=== PATIENT | male | born 1950 | race Asian ===

== ENCOUNTER 2017-07-11 18:57 | Inpatient (IN) | END 2017-07-13 15:57 | disposition home or self-care (01) | DRG 149 ==

== ENCOUNTER 2017-10-05 18:28 | Emergency (ER) | END 2017-10-05 21:37 | disposition home or self-care (01) ==

== ENCOUNTER 2017-11-05 13:34 | Day surgery (SDC) | END 2017-11-05 15:47 | disposition home or self-care (01) ==

== ENCOUNTER 2018-01-01 08:27 | Day surgery (SDC) | END 2018-01-01 15:44 | disposition home or self-care (01) ==

== ENCOUNTER 2018-04-10 11:13 | Day surgery (SDC) | payer OTHER ==
[~2018-04-10] VITALS: Ht 175.3 cm; Wt 78.4 kg
[~2018-04-10 11:13] MED LIST: AMLO-147 PO; ASPI325T30 PO; HYDR-3672 PO; LOSA50TA14 PO
[2018-04-10] MEDS ORDERED: CALC667C PO (11:54)
[2018-04-10 12:11] VITALS: Ht 175.3 cm; Wt 78.4 kg
[2018-04-10 12:14] VITALS: BP 176/79; PULSE 85
[2018-04-10] MEDS ORDERED: LIDOCAINE 1% (MDV) 20 ML INJ ONE (12:51)
[2018-04-10] MEDS ORDERED: HEPARIN 1000 UNITS/ML 10 ML INJ ONE (12:51)
[2018-04-10] MEDS ORDERED: IODIXANOL LOCM 50 ML BTL ONE (13:17)
[2018-04-10 13:50] VITALS: BP 154/81; PULSE 74; RESP 17
--- NOTE | 2018-04-10 14:12 | OPR ---
DATE OF OPERATION: 04/10/2018 OPERATING SURGEON: Frantz Gordon MD INDICATIONS FOR PROCEDURE: End-stage renal disease, nonfunctioning right chest Perm-A-Cath, which silva s been in place for 2 years. PREOPERATIVE DIAGNOSIS: POSTOPERATIVE DIAGNOSIS: PROCEDURES PERFORMED: 1. Right chest Perm-A-Cath exchange. 2. Superior vena cavoplasty. DESCRIPTION OF OPERATIVE PROCEDURE: The patient was prepped and draped in sterile fashion after oper ative consent was obtained and local anesthetic was infiltrated into the skin. Time-out was performe d. The cuff of the previously placed Perm-A-Cath was freed from the surrounding tissue with blunt di ssection. Once the catheter was loose, an Amplatz wire was placed through the previously placed Perm -A-Cath and the Perm-A-Cath was removed approximately 6 cm. 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 The catheter was removed. A 12 x 4 cm balloon was placed over the wire and was inflated in the superior vena cava as well as in the pe ripheral superior vena cava. A mild waist was seen. Next, the 24 cm Perm-A-Cath was again placed ov er the wire after the balloon was removed. Once good positioning was seen, the wire was removed and both ports aspirated and flushed well. The Perm-A-Cath was tacked to the skin with a 3-0 nylon sutur e. A Biopatch was placed around the skin exit site and a pressure dressing was placed. Procedure wa s terminated. Dictated By: FRANTZ GARCÍA/LEIDY Conf#: [id number] DID#: [id number]
== END 2018-04-10 14:23 | disposition home or self-care (01) ==
LOC: SDS 11:13
PROVIDERS: ATTEND Surgery
DX: T82.49XA Other complication of vascular dialysis catheter, initial encounter (principal); Y84.1 Kidney dialysis as the cause of abnormal reaction of the patient, or of later complication, without mention of misadventure at the time of the procedure; I12.0 Hypertensive chronic kidney disease with stage 5 chronic kidney disease or end stage renal disease; N18.6 End stage renal disease
CPT/HCPCS: 37248; 84132; J1644; Q9967; Z7610

== ENCOUNTER 2018-06-03 06:06 | Day surgery (SDC) | payer OTHER ==
[2018-05-26 13:05] VITALS: BMI 26.8
[~2018-06-03] VITALS: Ht 172.7 cm; Wt 81.2 kg
[2018-06-03] VITALS (16 sets, daily range): BP systolic 152–179; BP diastolic 69–92; PULSE 70–82; RESP 12–24; Ht 172.7 cm; Wt 81.2 kg
[~2018-06-03 06:06] MED LIST changes: +CALC667C PO; -LOSA50TA14 PO
[2018-06-03] MEDS ORDERED: BUPIVACAINE 0.25% (MPF) 30 ML INJ ONE (06:32)
[2018-06-03] MEDS ORDERED: THROMBIN (BOVINE) 5,000 UNIT VIAL TP ONE (06:32)
[2018-06-03] MEDS ORDERED: GELATIN SIZE 100 SPONGE ONE (06:32)
[2018-06-03] MEDS ORDERED: LIDOCAINE 1% (MPF) 30 ML INJ ONE (06:33)
[2018-06-03] MEDS ORDERED: HEPARIN 1000 UNITS/ML 10 ML INJ ONE ×3 (06:33→08:36)
[2018-06-03] MEDS ORDERED: SEVOFLURANE 15 MIN ONE (07:00)
--- NOTE | 2018-06-03 07:15 | PREAC ---
Date/Time of Note Date/Time of Note DATE: 06/03/18 TIME: 07:14 Anesthesia Eval and Record Evaluation Time Pre-Procedure Interview DATE: 06/03/18 TIME: 07:14 Age 67 Sex male NPO: 8 hrs Preoperative diagnosis ESRD Planned procedure Left arm AV fistula transposition Past Medical History Past Medical History: Includes Cardio: HTN Renal: ESRD on dialysis, HD last: (05/31) Surgery & Anesthesia Issues No known issue Meds Anticoagulation: No Beta Rogelio within 24 hr: No Reason Beta Rogelio not given: Pt. not on B-Rogelio Reported Medications Calcium Acetate* (Calcium Acetate*) 667 Mg Capsule, 1334 MG PO WITH MEALS, #60 CAP 04/10/18 Hydralazine Hcl* (Hydralazine Hcl*) 50 Mg Tab, 50 MG PO TID PRN for ELEVATED BLOOD PRESSURE, #60 TAB 11/05/17 Aspirin* (Aspirin*) 325 Mg Tablet, 325 MG PO DAILY, TAB 07/11/17 Amlodipine Besylate* (Amlodipine Besylate*) 10 Mg Tablet, 10 MG PO DAILY, #30 TAB 07/11/17 Meds reviewed: Yes Allergies Coded Allergies: No Known Allergies (Verified Allergy, Unknown, 06/03/18) Allergies Reviewed: Yes Labs/Studies Labs Reviewed: Reviewed by anesthesiologist Result Diagram: 06/03/18 0638 Laboratory Tests 06/03/18 06:38 test: N/A Pre-procedure Exam Last vitals Vital Signs Date Temp Pulse Resp B/P (MAP) Pulse Ox O2 O2 Flow FiO2 Time Delivery Rate 06/03/18 98.6 79 18 175/92 99 Room Air 06:56 (119) Airway: Adequate mouth opening Mallampati: Mallampati I Teeth: Abnormal (A few lower teeth left) Lung: Normal Heart: Normal ASA Physical Status ASA physical status: 3 Emergency: None Planned Anesthetic General/MAC: LMA Planned Pain Management Parenteral pain med Pre-operative Attestations Prior to commencing anesthesia and surgery, the patient was re-evaluated, there was verification of: *The patient's identity *The results of appropriate recent lab work and preoperative vital signs *The above evaluation not changing prior to induction *Anesthetic plan, risk benefits, alternative and complications discussed with patient/family; questions answered; patient/family understands, accepts and wishes to proceed. FINA GUO MD Jun 03, 2018 07:15
[2018-06-03] MEDS ORDERED: LOSA50TA14 ORAL (07:30)
[2018-06-03] MEDS ORDERED: HYDR-3671 ORAL (07:30)
[2018-06-03] MEDS ORDERED: PROPOFOL 20 ML ONE (07:34)
[2018-06-03] MEDS ORDERED: LIDOCAINE 2% (SDV) 5 ML INJ ONE (07:34)
--- NOTE | 2018-06-03 07:35 | HPN ---
Date/Time of Note Date/Time of Note DATE: 06/03/18 TIME: 07:35 Interval H&P Admission Note Pt. seen H&P reviewed: No system changes ELIZABETH MENDOZA MD Jun 03, 2018 07:35
[2018-06-03] MEDS ORDERED: CEFAZOLIN 1 GM INJ ONE (07:36)
[2018-06-03] MEDS ORDERED: OXYCODONE/ACETAMINOPHEN (5/325) TAB PO PRN ×2 (08:30)
[2018-06-03] MEDS ORDERED: MEPERIDINE 25 MG INJ IV PRN (08:30)
[2018-06-03] MEDS ORDERED: METOCLOPRAMIDE 10 MG INJ IV PRN (08:30)
[2018-06-03] MEDS ORDERED: EPHEDrine SULFATE 50 MG/5 ML SYG IV PRN (08:30)
[2018-06-03] MEDS ORDERED: HYDROmorphONE 1 MG/5 ML IV SYRINGE IV PRN ×2 (08:30)
[2018-06-03] MEDS ORDERED: ONDANSETRON 4 MG INJ IV PRN (08:30)
[2018-06-03] MEDS ORDERED: hydrALAzine 20 MG INJ IV PRN (08:30)
[2018-06-03] MEDS ORDERED: DIPHENHYDRAMINE 50 MG INJ IV PRN (08:30)
[2018-06-03] MEDS ORDERED: FENTAnyl 50 MCG/ML VIAL IV PRN ×3 (08:30)
[2018-06-03] MEDS ORDERED: MIDAZOLAM 1 MG/ML 2 ML INJ IV PRN (08:30)
[2018-06-03] MEDS ORDERED: LABETALOL HCL 20MG INJ IV PRN (08:30)
[2018-06-03] MEDS ORDERED: EPHEDrine 25 MG/5 ML SYG ONE (09:30)
--- NOTE | 2018-06-03 09:35 | SIPON ---
Date/Time of Note Date/Time of Note DATE: 06/03/18 TIME: 09:34 Operative Report Preoperative Diagnosis ESRD Postoperative Diagnosis same Operation/Procedure Performed Left basilic AVF transposition. Surgeon Rip Mendoza MD see signature line optometry assistant none Anesthesia: general Estimated blood loss: minimal Transfusion Required none Specimen none Grafts/Implants none Complications none RIP MENDOZA MD Jun 03, 2018 09:35
[2018-06-03] MEDS: HYDROmorphONE 1 MG/5 ML IV SYRINGE IV PRN ×2 (10:06→10:20)
--- NOTE | 2018-06-03 10:38 | PAC ---
Date/Time of Note Date/Time of Note DATE: 06/03/18 TIME: 10:37 Post-Anesthesia Notes Post-Anesthesia Note Last documented vital signs Vital Signs Date Temp Pulse Resp B/P (MAP) Pulse Ox O2 O2 Flow FiO2 Time Delivery Rate 06/03/18 72 13 172/81 89 Room Air 10:32 (111) 06/03/18 98.1 09:49 Activity: WNL Respiratory function: WNL Cardiovascular function: WNL Mental status: Baseline Pain reasonably controlled: Yes Hydration appropriate: Yes Nausea/Vomiting absent: Yes Comments BT: 98.4 FINA GUO MD Jun 03, 2018 10:38
--- NOTE | 2018-06-03 17:35 | RADRPT ---
Vent Rate: 80 bpm RR Interval: 0 msec KS Interval: 182 msec QRS Duration: 118 msec QT Interval: 362 msec QTC Interval: 417 msec P-R-T Fieldale: 66 - 73 - -4 degrees Normal sinus rhythm Left ventricular hypertrophy with QRS widening and repolarization abnormality Abnormal ECG Electronically Signed By: Maicol Koch
--- NOTE | 2018-06-03 19:02 | OPR ---
DATE OF OPERATION: 06/03/2018 PREOPERATIVE DIAGNOSIS: End-stage renal disease. POSTOPERATIVE DIAGNOSIS: End-stage renal disease. OPERATION PERFORMED: Left brachiobasilic AV fistula transposition. SURGEON: Elizabeth Sweeney MD TELEVISION MECHANIC: None. ANESTHESIA: General. INDICATION OF THE PROCEDURE: The patient is a 67-year-old male with end-stage renal disease who will require long-term hemodialysis access. Above-mentioned procedure was discussed with the patient. H e understood the risks and benefits and agreed to proceed. DESCRIPTION OF PROCEDURE: The patient was brought to the operating room after informed consent, the patient was placed in the supine position over the operating table. Anesthesia was administered and maintained using general anesthesia. The area of surgery was cleaned, prepped and draped in the ster ile fashion. Basilic vein in the left upper extremity was exposed with multiple skin incisions along the medial aspect of the left arm. Incision was done using 15-blade scalpel, taken down through sub cutaneous tissue using the Bovie and sharp dissection with the Cunningham scissor. The vein was dissected circumferentially. All tributaries were doubly ligated with 3-0 silk suture and transected. The vei n was ligated distally with 3-0 silk suture and transected. The vein was dilated with heparinized sa line and marked with marking pen, then tunneled in the anterior medial aspect of the left arm using l arge aortic clamp and brought to the most distal incision. Through that incision, the brachial arter y was exposed and using sharp dissection with Metzenbaum scissors, controlled with vascular clamps. A longitudinal arteriotomy was done using 11-blade scalpel and Miller scissor. Then, the vein was rachel lored in the usual fashion. An end-to-side anastomosis was established using 6-0 Prolene suture in a continuous running technique. Prior to completion of suture line, retrograde antegrade flush of the lumen was allowed to return. Suture line was completed. Hemostasis of suture line was achieved wit h Gelfoam thrombin. The patient had very strong palpable thrill along the entire length of the vein. Incisions were closed using 3-0 Vicryl suture for subcutaneous tissue in a continuous running techn ique. Edges of skin were approximated together using 4-0 Monocryl in subcuticular fashion. Steri-St rips were applied as was dry sterile dressing. The patient was extubated successfully, transferred t o recovery room in stable condition. Dictated By: ELIZABETH QUINONES/LEIDY Conf#: [id number] DID#: [id number] CC: RAMONA OVIEDO MD;*EndCC*
== END 2018-06-03 12:55 | disposition home or self-care (01) ==
LOC: SDS 06:06
PROVIDERS: ATTEND Surgery
DX: I12.0 Hypertensive chronic kidney disease with stage 5 chronic kidney disease or end stage renal disease (principal); N18.6 End stage renal disease
CPT/HCPCS: 36821; 71045; 80053; 85025; 85610; 85730; 93005; J0690; J1170; J1644; J3010; Z7512; Z7610